=== PATIENT | male | born 2000 | race Hispanic/Latino ===

== ENCOUNTER 2020-06-27 10:58 | Day surgery (SDC) | payer BC, SELFPAY ==
[2020-06-27] MEDS ORDERED: Bupivacaine 0.25% HCL 30 ML VIAL ONE (12:29)
[2020-06-27] MEDS ORDERED: EPINEPHrine 1 MG/ML AMP ONE (12:29)
[2020-06-27] MEDS ORDERED: Fentanyl 100 MCG/2 ML VIAL ONE ×2 (12:41→16:07)
[2020-06-27] MEDS ORDERED: cefOXitin Sodium/Dextrose 2 GM/50 ML BAG ONE (12:52)
[2020-06-27] MEDS ORDERED: Midazolam HCl 2 mg/2 ml Vial ONE (13:03)
[2020-06-27] MEDS ORDERED: Ondansetron PF 4 MG/2 ML Vial ONE (13:15)
[2020-06-27] MEDS ORDERED: Succinylcholine 200 MG/10 ml SYRINGE FS ONE (13:15)
[2020-06-27] MEDS ORDERED: Glycopyrrolate 0.2 MG/ML 5 ML SYRINGE ONE (13:15)
[2020-06-27] MEDS ORDERED: Rocuronium Bromide 10 MG/ML (10ML VIAL) ONE (13:15)
[2020-06-27] MEDS ORDERED: Dexamethasone 20 MG/5 ML VIAL ONE (13:15)
[2020-06-27] MEDS ORDERED: PROPOFOL 200 MG/20 ML VIAL ONE (13:15)
[2020-06-27] MEDS ORDERED: Lidocaine 1% PF 5 ML VIAL ONE (13:15)
[2020-06-27] MEDS ORDERED: SUGAMMADEX SODIUM 200 MG/2 ML VIAL ONE (14:00)
[2020-06-27] MEDS ORDERED: HYDROcodone/Acetaminophen 5/325 mg Tablet ONE (15:05)
== END 2020-06-27 16:55 | disposition home or self-care (01) ==
LOC: SDC 10:58
PROVIDERS: ATTEND Surgery
PROC: 0DTJ4ZZ Resection of Appendix, Percutaneous Endoscopic Approach (ICD-10-PCS; principal; 2020-06-27)
DX: K35.80 Unspecified acute appendicitis (principal)
CPT/HCPCS: 88304; J0171; J0694; J1100; J2250; J2405; J2704; J3010; S0020